=== PATIENT | male | born 1965 | race Caucasian/White ===

== ENCOUNTER 2024-03-25 23:12 | Inpatient (IN) | payer OTHER, SELFPAY ==
[2024-03-25 18:24] VITALS: BP 124/69
[2024-03-25 18:27] VITALS: BP 124/69
[2024-03-25 19:00] VITALS: BP 121/73
[2024-03-25 19:00] LABS: % Basophils 0.3 % (0-2); % Eosinophils 0.3 % (0-6); % Immature Granulocytes 0.3 % (0-0.5); % Lymphocytes 5.4 % (20.5-51.1); % Monocytes 3.5 % (1.7-9.3); % Neutrophils 90.2 % (42.2-75.2); Absolute Lymphocytes 0.6 10^3/uL (1.2-3.4); Absolute Monocytes 0.4 10^3/uL (0.1-0.6); Absolute Neutrophils 10.5 10^3/uL (1.4-6.5); Hematocrit 40.9 % (39.0-52.0); Hemoglobin 14.5 g/dL (13.0-18.0); Mean Corp Hgb Conc. 35.5 g/dL (33.0-37.0); Mean Corpuscular Hgb 29.8 pg (27.0-31.0); Mean Platelet Volume 10.9 fL (7.4-10.4); Nucleated Red Blood Cells % 0 % (-); Platelet Count 208 10^3/uL (130-400); Red Blood Cell Count 4.87 10^6/uL (4.70-6.10); Red Cell Dist. Width 13.2 % (11.5-14.5); White Blood Cell Count 11.7 10^3/uL (4.8-10.8)
[2024-03-25 19:15] LABS: ALT (SGPT) 13 U/L (0-50); AST (SGOT) 21 U/L (17-59); Albumin 4.4 g/dl (3.5-5.0); Alkaline Phosphatase 65 U/L (38-126); Blood Urea Nitrogen 23 mg/dl (9-20); Calcium 9.6 mg/dl (8.4-10.2); Carbon Dioxide 27 mmol/L (22-30); Chloride 105 mmol/L (98-107); Glucose 107 mg/dl (70-99); Potassium 3.9 mmol/L (3.5-5.1); Sodium 140 mmol/L (135-145); Total Bilirubin 0.5 mg/dl (0.2-1.3); Total Protein 6.8 g/dl (6.3-8.2); eGFR > 60.00
[2024-03-25 19:35] LABS: Urine Albumin Negative (Neg - Trace); Urine Bilirubin Negative (Negative); Urine Character Clear (Clear); Urine Color Yellow; Urine Glucose Negative (Negative); Urine Ketone Negative (Negative); Urine Leukocyte Negative (Negative); Urine Nitrite Negative (Negative); Urine Occult Blood Negative (Negative); Urine Urobilinogen Negative (Neg - 1+); Urine pH 6.5 (5.0-9.0)
[2024-03-25 19:48] LABS: Lactic Acid 2.4 mmol/L (0.7-2.0)
[2024-03-25] MEDS: NSS 1000 IV (19:58)
[2024-03-25 20:00] VITALS: BP 129/74
[2024-03-25] MEDS: THIAMINE INJECTION 100 MG IV (20:27)
[2024-03-25] MEDS: ZOSYN 100 IV (20:27)
--- NOTE | 2024-03-25 21:47 | ED.GENMED ---
History of Present Illness
General
Chief Complaint: Change in Mental Status
Source: patient
Exam Limitations: none
Time Seen by Provider: 03/25/24 19:10
Nursing documentation reviewed up to this point in time: agreed with
History of Present Illness
History of Present Illness:
Patient to ED from [facility] for change in mental status.According to [facility] he was not responsive to staff today. On arrival to ED he opens eyes to commands. Hypothermic, shaking chills. Septic workup initiated,
Past History
Past History
ED Past Medical History: Seizures, Hypothyroidism, Psychiatric (anxiety) and Other (Wenickes encephalopathy, failure to thrive)
ED Past Surgical History: None
Review of Systems
Review of Systems
Allergies reviewed?: Yes
All Other Systems: ROS reviewed and negative except as documented in HPI and ROS
Constitutional: Reports chills and other (hypothermia)
EENT: Reports no symptoms
Respiratory: Reports no symptoms
Cardiac: Reports no symptoms
ABD/GI: Reports anorexia
: Reports no symptoms
Musculoskeletal: Reports no symptoms
Skin: Reports no symptoms
Neurological: Reports weakness
Psychiatric: Reports anxiety
Phy Exam
General Physical Exam
General Presentation: no apparent distress
General age: appears stated age
General Skin: warm and dry
General Habitus: failure to thrive
General Mental: other (Nonverbal in ED. Opens eyes to name.)
Cardiovascular Exam
Cardiovascular Exam: regular rate/rhythm and no edema
Pulmonary Exam
Pulmonary Exam: lungs clear and no respiratory distress
Gastrointestinal Exam
Gastrointestinal Exam: normal bowel sounds, non tender, soft and no organomegaly
Musculoskeletal Exam
Musculoskeletal Exam: neuro vasc intact
Skin Exam
Skin Exam: normal color, warm/dry and no rash
Psychiatric Exam
Psychiatric Exam: other (opens eyes to name. Nonverbal im ED)
Course
Orders/Labs/Results
Orders:
Orders
03/25/24 18:52
Complete Blood Count/With Diff Urgent
Comprehensive Metabolic Panel Urgent
03/25/24 19:11
CT Head W/o Iv Contrast Urgent
Comment:
Reason For Exam: change in mental status
03/25/24 19:12
CR Chest - 2 Views Urgent
Comment:
Reason For Exam: cough
03/25/24 19:25
Lactic Acid Urgent
Urine Culture Reflexed from UA [Urinalysis Reflex To Culture] Urgent
Date Specimen was Collected: 03/25/24
Time Specimen was Collected: 19:00
Blood Culture Urgent
JOSSE Source: Blood/Venous
Specimen Description:
Date Specimen was Collected: 03/25/24
Time Specimen was Collected: 19:00
03/25/24 19:29
0.9% Sodium Chloride 1000 ml [Nss] 1,000 ml IV BOLUS
03/25/24 20:03
Piperacillin/Tazo 4.5 Gram [Zosyn] 4.5 gram in 100 ml IV NOW
Vancomycin 1 Gram/200 ml [Vancocin] 1 gram in 200 ml IV NOW
03/25/24 20:04
Blood Culture Urgent
JOSSE Source: Blood/Venous
Specimen Description:
03/25/24 20:17
Thiamine Injection 100 mg IV NOW STA
03/25/24 23:00
Flush (0.9% Sodium Chloride) [Flush (Nss)] See Dose Instructions IV PER PROTOCOL
03/25/24 23:30
Lactate Level [Lactic Acid] Urgent
Abnormal Lab Results
03/25/24 03/25/24
18:52 19:25
WBC 11.7 H 10^3/uL
(4.8-10.8)
MPV 10.9 H fL
(7.4-10.4)
Absolute Neuts (auto) 10.5 H 10^3/uL
(1.4-6.5)
Absolute Lymphs (auto) 0.6 L 10^3/uL
(1.2-3.4)
Neutrophils % 90.2 H %
(42.2-75.2)
Lymphocytes % 5.4 L %
(20.5-51.1)
BUN 23 H mg/dl
(9-20)
Glucose 107 H mg/dl
(70-99)
Lactic Acid 2.4 H mmol/L
(0.7-2.0)
03/25/24 18:52
03/25/24 18:52
Vital Signs
Initial and Last Documented VS:
Initial Vital Signs
Pulse BP
0 124/69
03/25/24 18:24 03/25/24 18:24
Last Documented Vital Signs
Temp Pulse Resp BP Pulse Ox
98.3 F 70 14 129/74 94
03/25/24 20:16 03/25/24 20:15 03/25/24 20:15 03/25/24 20:00 03/25/24 20:16
*Radiology
Radiology exam reviewed: radiology read reviewed
*Pulse Oximetry
Patient hypoxic: no
*Critical Care Note
Total Time (30-74mins, 75-104mins- exclusive of procedures): Not Applicable
ED Attending Note
-
Portions of this chart may have been created with voice recognition software.� Occasional wrong word or��sound alike� substitutions may have occurred due to the inherent limitations of voice recognition software.
Discharge Plan
Departure
Patient Disposition: Admit
Date of Disposition: 03/25/24
Time of Disposition: 22:00
Presentation/result/management discussed w/ accepting MD/DO: Hospitalist
Patient with high blood pressure during this ER visit?: No
Condition: Good
Covid-19: Not Applicable
Discharge Problem:
Sepsis, Pneumonia
Prescriptions:
No Action
levetiracetam 500 mg Tablet
500 mg PO Q12H
thiamine HCl (vitamin B1) 100 mg Tablet
100 mg PO DAILY
bisacodyl [Dulcolax (bisacodyl)] 10 mg Suppository
10 mg [place] DAILYPRN PRN (Reason: if no bm in 24hrs after MOM)
Fleet Enema 19-7 gram/118 mL Enema
118 ml [place] DAILYPRN PRN (Reason: if no bm in 24hrs after dulcolax)
folic acid 1 mg Tablet
1 mg PO DAILY
diazepam 10 mg Kit
10 mg [place] PRN PRN (Reason: seizure activity)
lorazepam [Ativan] 1 mg Tablet
1 mg PO Q6H
multivitamin with minerals Tablet
1 tab PO DAILY
risperidone 0.5 mg Tablet
0.5 mg PO BID
Referrals:
Hoda Moran, DO [Family Provider] -
Interventions
Interventions:
*Risk Screen - Suicide Last Done: 03/25/24 18:27
*General Assessment Last Done: 03/25/24 18:27
*Neglect/Abuse Screening Last Done: 03/25/24 18:27
*ED COVID-19 Vaccine History Last Done: 03/25/24 18:27
ED- Pulmonary Assessment Last Done: 03/25/24 20:20
ED- Neurological Assessment Last Done: 03/25/24 18:27
ED Swallowing Screen Last Done: 03/25/24 20:19
Discharge Date and Time
Print Language: SWEDISH
[2024-03-25] MEDS: VANCOCIN 200 IV (22:54)
--- NOTE | 2024-03-25 22:56 | W.PN.UPDATE ---
Update Note
Progress Note Update
This is an addendum to the H&P written by Nona Owens on 03/25/2024. Patient seen and examined independently with PA.
58-year-old male past medical history of seizures, hypothyroidism, anxiety, Wernicke's encephalopathy, here for unresponsiveness, sepsis and metabolic encephalopathy secondary to mild right basilar pneumonia. IV fluids, check COVID,
ceftriaxone/azithromycin. Change keppra to IV since cannot take oral meds.
[2024-03-25 22:58] VITALS: BP 119/68
[2024-03-25 23:00] VITALS: BP 110/62
--- NOTE | 2024-03-25 23:01 | HPS.HSE ---
Family Physician
-
Family Physician: Hoda Morna DO
Chief Complaint
-
Change in Mental Status
History of Present Illness
Patient is a 58 y/o with a PMH of alcohol use disorder, Wernicke's encephalopathy, and seizures who reports to the ED for mental status change. Patient has been a long-term resident at [facility] since 2021. Per staff had a change in mental
status today. Staff said he had fixed pupils and was unresponsive. Upon arrival to the ED he was able to open his eyes and was noted hypothermic. Additional work-up revealed evidence of pneumonia. Hosptialist group was asked to evaluate the patient
for admission to the hospital.
Medical History
Past Medical History
Past Medical History: Reports Other
Additional Past Medical History:
Alcohol Induced Persistent Amnestic Disorder
Wernicke's Encephalopathy
Seizure Disorder
Past Surgical History: Reports Other (Unknown)
Social History
Alcohol: Former
Living: Prison
Family History
Family History: Unable to Obtain
Allergies / Home Medications
Allergies reflects when Allergies were last updated in [employer]
Home Medications with original date entered in [employer]
Allergy/Medication List:
Allergies
Allergy/AdvReac Type Severity Reaction Status Date / Time
No Known Allergies Allergy Unverified 03/25/24 19:51
Home Medications
bisacodyl 10 mg rectal suppository (Dulcolax (bisacodyl)) 10 mg [place] DAILYPRN PRN if no bm in 24hrs after MOM 03/25/24
diazepam 10 mg rectal kit 10 mg MI PRN PRN seizure activity 03/25/24
folic acid 1 mg tablet 1 mg PO DAILY 03/25/24
levetiracetam 500 mg tablet 500 mg PO Q12H 03/25/24
lorazepam 1 mg tablet (Ativan) 1 mg PO Q6H 03/25/24
multivitamin with minerals 1 tab PO DAILY 03/25/24
risperidone 0.5 mg tablet 0.5 mg PO BID 03/25/24
sodium phosphates 19 gram-7 gram/118 mL enema (Fleet Enema) 118 ml [place] DAILYPRN PRN if no bm in 24hrs after dulcolax 03/25/24
thiamine HCl (vitamin B1) 100 mg tablet 100 mg PO DAILY 03/25/24
Review of Systems
-
Unable to obtain full review of systems at this time due to: Patient Non-verbal
Physical Exam
Vital Signs
Vital Signs
Temp Pulse Resp BP Pulse Ox
98.3 F 70 14 129/74 94
03/25/24 20:16 03/25/24 20:15 03/25/24 20:15 03/25/24 20:00 03/25/24 20:16
Physical Exam
General: Well Developed and Comfortable
HEENT: Anicteric and Moist mucous membranes
Respiratory: Decreased Breath Sounds (Poor inspiratory effort)
Cardiac: S1/S2 and Regular Rhythm
GI: Soft and Non Tender
Rectal: Deferred by Provider
Musculoskeletal: No Clubbing, No Cyanosis and No Edema
Skin: Warm and Dry
Neuro: Other (Lethargic and unable to participate in neurologic evaluation)
Laboratory Results
-
03/25/24 18:52
03/25/24 18:52
Laboratory Results
Lactic Acid 2.4 mmol/L (0.7-2.0) H 03/25/24 19:25
Total Bilirubin 0.5 mg/dl (0.2-1.3) 03/25/24 18:52
AST 21 U/L (17-59) 03/25/24 18:52
ALT 13 U/L (0-50) 03/25/24 18:52
Alkaline Phosphatase 65 U/L (38-126) 03/25/24 18:52
Data Reviewed
-
Diagnostic Radiology: Report Reviewed by me
Lab Data: Labs Reviewed by me
Impression/Plan
-
Sepsis/TME secondary to Pneumonia
-Continue ceftriaxone and azithromycin
-Continue NPO until mentation improves and seen by Speech
Seizure Disorder
-Continue Keppra IV until able to resume oral meds
-Hold lorazepam due to sedation
Wernicke's Encephalopathy
-Resume Folic Acid and Thiamine when able to take oral meds
Dysphagia
-Chopped diet per [place] paperwork
-Consult Speech
DVT proph: Lovenox
Code Status: DNR/DNI per [place] Paperwork
[2024-03-26] VITALS (8 sets, daily range): BP systolic 107–129; BP diastolic 55–73
[2024-03-26 00:15] LABS: Lactic Acid 1.5 mmol/L (0.7-2.0)
[2024-03-26 00:16] LABS: COVID-19 Antigen Negative (Negative)
[2024-03-26] MEDS: KEPPRA 500 MG IV ×3 (01:03→20:08)
[2024-03-26] MEDS: NSS 1000 IV ×2 (01:03→14:25)
--- NOTE | 2024-03-26 01:51 | PTCARENOTE ---
Pt. arrived from ED via stretcher. Patient pulled over from stretcher to bed in 338-2. Pt. non-verbal, arousable to tactile stimuli. Admission questions answered with information from [place] transfer sheet. Pt. AAOx0. Skin intact. Tele monitor placed
per orders. Bed alarm placed. Call rodriguez within reach. Plan of care ongoing.
[2024-03-26] MEDS: ZITHROMAX INFUSION 250 IV (05:25)
[2024-03-26] MEDS: ROCEPHIN 1000 MG IV (05:25)
[2024-03-26] MEDS: STERILE WATER FOR INJECTION 10 ML IV (05:25)
[2024-03-26] MEDS: RISPERDAL 0.5 MG PO ×2 (08:04→20:08)
--- NOTE | 2024-03-26 09:20 | W.PN.HOSP.TC ---
Today's Communication/Plan
-
Resume oral meds and diet
c/w IV Abx
Add PRN Diazepam
Fall precautions
Assessment / Plan
Assessment / Plan
Physical Exam
General: sitting in bed, awake
HEENT: Anicteric and Moist mucous membranes
Respiratory:No wheezes.
Cardiac: S1/S2
GI: Soft and Non Tender
Musculoskeletal: No Clubbing, No Cyanosis and No Edema
Skin: Warm and Dry
Neuro: H eis awake, seems at baseline, moving around
Psych: agitated
Sepsis with leukocytosis/ lactic acidosis, hypothermia
Now resolved
# TME secondary to Pneumonia
He seems back to baseline
Resume Risperdal as he is restless
# CAP
No hypoxia. Temp is normal this morning
-Continue ceftriaxone and azithromycin
-Continue NPO until mentation improves and seen by Speech
Seizure Disorder
- s/p Keppra IV , change back to oral
c/w PRN diazepam
Wernicke's Encephalopathy
Dysphagia
resume his home diet IDDS 6
DVT proph: Lovenox
Code Status: DNR/DNI per [place] Paperwork
Total time spent to see the patient, examine the patient on the floor, review data and lab results, discuss treatment plan with patient, nursing staff around 55 minutes
Anticipated Discharge: 24 - 48 hours
Subjective/Interval History
-
Date of Service: March 26, 2024
No fevers
Awake now
Objective Data
-
Labs:
Laboratory Results
03/26/24
09:07
WBC Pending
Hgb Pending
Hct Pending
Plt Count Pending
Sodium Pending
Potassium Pending
Chloride Pending
Carbon Dioxide Pending
BUN Pending
Creatinine Pending
Glucose Pending
Calcium Pending
Vital Signs:
Vital Signs
Temp Pulse Resp BP Pulse Ox
97.2 F 60 20 108/66 99
03/26/24 07:00 03/26/24 07:00 03/26/24 07:00 03/26/24 07:00 03/26/24 07:00
I&O
03/25/24 03/26/24 03/27/24
06:59 06:59 06:59
Intake Total 500 / 500
Balance 500 / 500
[2024-03-26 09:44] LABS: Hematocrit 41.5 % (39.0-52.0); Hemoglobin 14.5 g/dL (13.0-18.0); Mean Corp Hgb Conc. 34.9 g/dL (33.0-37.0); Mean Corpuscular Hgb 30.6 pg (27.0-31.0); Mean Corpuscular Volume 87.6 fL (80.0-94.0); Mean Platelet Volume 11.7 fL (7.4-10.4); Platelet Count 204 10^3/uL (130-400); Red Blood Cell Count 4.74 10^6/uL (4.70-6.10); Red Cell Dist. Width 13.2 % (11.5-14.5)
[2024-03-26 09:55] LABS: Blood Urea Nitrogen 14 mg/dl (9-20); Carbon Dioxide 24 mmol/L (22-30); Glucose 116 mg/dl (70-99); eGFR > 60.00
--- NOTE | 2024-03-26 10:31 | PTOTSP ---
Patient is not able to follow cues for bed mobility, transfers or OOB mobility in meaningful way to progress mobility. Does not demonstrate need for continued skilled therapy at this time. Will discharge from caseload.
Recommend return to [facility] at discharge.
[2024-03-26 11:19] LABS: Chloride 109 mmol/L (98-107); Potassium 4.5 mmol/L (3.5-5.1); Sodium 144 mmol/L (135-145)
--- NOTE | 2024-03-26 11:54 | PTOTSP ---
ST Acute Care Evaluation
Pt demonstrated oral, pharyngeal, and esophageal parameters that are safe for PO intake of all solids and liquids. No overt s/s of penetration or aspiration observed at bedside. Pt needs 1:1 assistance for feeding. Will put him back on baseline diet
consistencies.
Pt's acute change in mentation is being attributed to toxic metabolic encephalopathy in the setting of sepsis 2/2 PNA. Pt also with Wernicke's encephalopathy at baseline. As a result, further cognitive communication assessment is not warranted at
this time.
Recommendations:
- Continue with SOFT BITE SIZED SOLIDS (baseline diet), THIN LIQUIDS, meds as tolerated.
- General aspiration predations: 1:1 assistance for PO intake.
- BED RUBBER to sign off. No skilled needs identified at this time.
--- NOTE | 2024-03-26 14:04 | CM ---
Pt nonverbal LM with Marcia from [facility] for history.
[2024-03-26] MEDS: VALIUM 5 MG PO (14:56)
[2024-03-26] MEDS: ATIVAN 1 MG IV (17:18)
[2024-03-26] MEDS: NSS (PRESERVATIVE FREE) 0.5 ML IV (17:18)
[2024-03-26] MEDS: LOVENOX 40 MG SC (17:22)
[2024-03-27] MEDS: NSS 1000 IV (01:10)
--- NOTE | 2024-03-27 02:05 | PTCARENOTE ---
At the start of the shift, [employer] alerted. This RN immediately entered room where patient was upright in the bed on both knees trying to play with IV pump. While trying to redirect, patient became combative and aggressive and tried punching this
RN. Other staff entered the room to assist. KEVIN Wong notified. New order rec'd for b/l wrist restraints and 4 side rails. Plan of care ongoing.
[2024-03-27 03:40] VITALS: BP 127/74
[2024-03-27] MEDS: ZITHROMAX INFUSION 250 IV (05:36)
[2024-03-27] MEDS: STERILE WATER FOR INJECTION 10 ML IV (05:36)
[2024-03-27] MEDS: ROCEPHIN 1000 MG IV (05:36)
[2024-03-27] MEDS: NSS IV (06:51)
[2024-03-27 07:00] VITALS: BP 137/77
[2024-03-27] MEDS: RISPERDAL 0.5 MG PO ×2 (07:58→20:13)
[2024-03-27] MEDS: KEPPRA 500 MG IV (07:59)
[2024-03-27] MEDS: ATIVAN 1 MG PO ×4 (08:11→23:26)
--- NOTE | 2024-03-27 10:32 | W.PN.HOSP.TC ---
Today's Communication/Plan
-
dc in am
Assessment / Plan
Assessment / Plan
Physical Exam
General: sitting in bed, awake
HEENT: Anicteric and Moist mucous membranes
Respiratory:No wheezes.
Cardiac: S1/S2
GI: Soft and Non Tender
Musculoskeletal: No Clubbing, No Cyanosis and No Edema
Skin: Warm and Dry
Neuro: He is awake, non verbal, moving around
Psych: agitated
Sepsis with leukocytosis/ lactic acidosis, hypothermia
Now resolved
# TME secondary to Pneumonia
He seems back to baseline ( as per my conversation with Gris, his POA)
Resumed Risperdal and Ativan
# CAP
No hypoxia. Temp is normal
-Continue ceftriaxone and azithromycin
Seizure Disorder
- s/p Keppra IV , change back to oral
c/w PRN diazepam
Wernicke's Encephalopathy
Dysphagia
resume his home diet IDDS 6
DVT proph: Lovenox
Code Status: DNR/DNI per [place] Paperwork
Total time spent to see the patient, examine the patient on the floor, review data and lab results, discuss treatment plan with patient, pt's POA, nursing staff around 55 minutes
Anticipated Discharge: Within 24 hours
Subjective/Interval History
-
Date of Service: March 27, 2024
Agitated over night, requiring Ativan
He is eating well
Objective Data
-
Vital Signs:
Vital Signs
Temp Pulse Resp BP Pulse Ox
97.1 F 55 18 137/77 95
03/27/24 07:00 03/27/24 07:00 03/27/24 07:00 03/27/24 07:00 03/27/24 07:00
I&O
03/26/24 03/27/24 03/28/24
06:59 06:59 06:59
Intake Total 500 / 500 960 / 960
Balance 500 / 500 960 / 960
[2024-03-27 11:00] VITALS: BP 97/65
--- NOTE | 2024-03-27 11:05 | CM ---
Addendum entered by Leighann Soler RN 03/27/24 11:21:
[facility]
report [phone] 4 th floor
fax [phone]
Original Note:
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 Spoke with Rebekah nurse at [facility]. LM with KAYY Jones x2.Rebekah said he is assisted in feeding meds and bathing. iHe ambulates with no adaptive device. He like to crawl and
some times wants to sleep on floor on mattress . He will need ambulance on return.
[facility]
PCP DR Moran
PLAN Return to [facility]
[2024-03-27 11:28] LABS: Hematocrit 42.8 % (39.0-52.0); Hemoglobin 15.5 g/dL (13.0-18.0); Mean Corp Hgb Conc. 36.2 g/dL (33.0-37.0); Mean Corpuscular Hgb 30.6 pg (27.0-31.0); Mean Corpuscular Volume 84.4 fL (80.0-94.0); Mean Platelet Volume 11.1 fL (7.4-10.4); Platelet Count 206 10^3/uL (130-400); Red Blood Cell Count 5.07 10^6/uL (4.70-6.10); Red Cell Dist. Width 13.1 % (11.5-14.5); White Blood Cell Count 8.8 10^3/uL (4.8-10.8)
[2024-03-27 11:39] LABS: Blood Urea Nitrogen 11 mg/dl (9-20); Calcium 9.5 mg/dl (8.4-10.2); Carbon Dioxide 22 mmol/L (22-30); Chloride 110 mmol/L (98-107); Glucose 114 mg/dl (70-99); Potassium 4.1 mmol/L (3.5-5.1); Sodium 142 mmol/L (135-145); eGFR > 60.00
--- NOTE | 2024-03-27 12:38 | PN.CDI ---
Addendum entered and electronically signed by Gabriella Mazariegos MD 03/27/24 13:16:
Aspiration PNA
Original Note:
CDI
- -
CDI:
Physician Documentation Request
Admit Date: 03/25/24 23:12
Dear Doctor Yair,
Please review the following and provide your response in the progress notes.
Clinical Indicators:
- 03/27 PN 'TME secondary to Pneumonia'
- 'CAP'
- IV abx Ceftriaxone, Vancomycin, Zithromax, Zosyn given
- Covid negative
- 03/25 CXR 'Mild right basilar pneumonia'
Please clarify further specificity regarding the known, suspected or likely type of pneumonia you are treating (recognizing the specific organism may not be known)?
Aspiration Pneumonia - indicate substance such as food or vomitus, oils or other solids or liquids
Staph Pneumonia - indicate if MRSA or MSSA
Strep Pneumonia - indicate if strep B, strep pneumoniae or other type
Gram negative Pneumonia - indicate if Pseudomonas, Klebsiella or other
Viral Pneumonia - indicate parainfluenza, RSV, adenovirus, influenza (indicate type) etc.
Other type
Use of terms such as suspected, likely, concern for, or probable (associated with a specific diagnosis that is being evaluated, monitored, or treated as if it exists) are acceptable and can be coded in the inpatient setting, when documented at the
time of discharge.
Thank you,
Frankie Yousif RN
CDI Specialist
Please use your independent medical judgment in providing your response.
[2024-03-27 15:00] VITALS: BP 103/72
[2024-03-27] MEDS: LOVENOX 40 MG SC (17:21)
[2024-03-27 19:15] VITALS: BP 126/63
[2024-03-27] MEDS: KEPPRA 500 MG PO (20:13)
[2024-03-27 23:20] VITALS: BP 103/58
[2024-03-28 03:25] VITALS: BP 144/66
[2024-03-28] MEDS: STERILE WATER FOR INJECTION 10 ML IV (05:33)
[2024-03-28] MEDS: ATIVAN 1 MG PO ×2 (05:33→12:06)
[2024-03-28] MEDS: ROCEPHIN 1000 MG IV (05:33)
[2024-03-28] MEDS: ZITHROMAX 500 MG PO (07:57)
[2024-03-28] MEDS: RISPERDAL 0.5 MG PO (07:57)
[2024-03-28] MEDS: KEPPRA 500 MG PO (07:57)
[2024-03-28 08:08] VITALS: BP 115/59
--- NOTE | 2024-03-28 10:11 | PTCARENOTE ---
Pt confused/aphasic during breakfast and AM care. Cooperative with staff. Attempted trial out of restraints, ambulate at bedside. Immediately attempting to reach out and hit staff. Restraints reapplied and patient lying in bed smiling.
--- NOTE | 2024-03-28 10:17 | W.PN.HOSP.TC ---
Today's Communication/Plan
-
dc
Assessment / Plan
Assessment / Plan
Physical Exam
General: sitting in bed, awake
HEENT: Anicteric and Moist mucous membranes
Respiratory:No wheezes.
Cardiac: S1/S2
GI: Soft and Non Tender
Musculoskeletal: No Clubbing, No Cyanosis and No Edema
Skin: Warm and Dry
Neuro: He is awake, non verbal, moving around
Psych: agitated
Sepsis with leukocytosis/ lactic acidosis, hypothermia
Now resolved
# TME secondary to Pneumonia
He seems back to baseline ( as per my conversation with Gris, his POA)
Resumed Risperdal and Ativan
# CAP
No hypoxia. Temp is normal
-Continue ceftriaxone and azithromycin
Seizure Disorder
- s/p Keppra IV , change back to oral
c/w PRN diazepam
Wernicke's Encephalopathy
Dysphagia
resume his home diet IDDS 6
DVT proph: Lovenox
Code Status: DNR/DNI per [place] Paperwork
Total dc time spent to see the patient, examine the patient on the floor, review data and lab results, discuss discharge/ treatment plan with patient, pt's POA, skilled nursing case manager, nursing staff around 65 minutes
Anticipated Discharge: Today
Subjective/Interval History
-
Date of Service: March 28, 2024
No pain issues
Not agitated this morning
No fevers
Objective Data
-
Vital Signs:
Vital Signs
Temp Pulse Resp BP Pulse Ox
96.9 F L 54 18 115/59 100
03/28/24 08:08 03/28/24 08:08 03/28/24 08:08 03/28/24 08:08 03/28/24 08:08
I&O
03/27/24 03/28/24 03/29/24
06:59 06:59 06:59
Intake Total 1919 420 / 420
Balance 1919 420 / 420
[2024-03-28 11:29] VITALS: BP 103/71
--- NOTE | 2024-03-28 11:43 | W.DCSUMMARY ---
Discharge Summary
Discharge Data
Date of Admission: 03/25/24
Date of Discharge: 03/28/24
-
Pending Results: No
Hospital Course
58 years old male who was brought in for change in mental status. Patient was found to have leukocytosis. Patient had history of Wernicke's encephalopathy, seizure disorder and anxiety disorder. According to report, patient had poor mental and
cognitive function at baseline but seemed worse than usual. Patient was found to have mild right basilar pneumonia, consistent with aspiration pneumonia. Patient had underlying dysphagia and was maintained on modified diet. Patient was given
intravenous antibiotics. Blood culture did not show any growth. Patient started to improve, with good oral intake. Leukocytosis resolved. Patient remained hemodynamically stable. Patient started to become restless and agitated, he was placed
back on his medications including benzodiazepines and Keppra. He did not have seizures. Patient was discharged back to his place in a stable condition.
Discharge Plan
-
Patient Disposition: Retirement/SNF
Discharge Diagnosis/Procedures: Pneumonia
Diet: As tolerated and Chop all food
Referrals:
Hoda Moran DO [Family Provider] -
Prescriptions:
New
cefuroxime axetil 500 mg tablet
500 mg PO BID Qty: 3 0RF
Continued
levetiracetam 500 mg Tablet
500 mg PO Q12H
thiamine HCl (vitamin B1) 100 mg Tablet
100 mg PO DAILY
bisacodyl [Dulcolax (bisacodyl)] 10 mg Suppository
10 mg [place] DAILYPRN PRN (Reason: if no bm in 24hrs after MOM)
Fleet Enema 19-7 gram/118 mL Enema
118 ml [place] DAILYPRN PRN (Reason: if no bm in 24hrs after dulcolax)
folic acid 1 mg Tablet
1 mg PO DAILY
lorazepam [Ativan] 1 mg Tablet
1 mg PO Q6H
multivitamin with minerals Tablet
1 tab PO DAILY
risperidone 0.5 mg Tablet
0.5 mg PO BID
Discontinued
diazepam 10 mg Kit
10 mg [place] PRN PRN (Reason: seizure activity)
Discharge Orders:
Discharge Patient (As Directed); Ordered 03/28/24
Ordered By: Gabriella Mazariegos
Discharge Date and Time
Print Language: TURKISH
--- NOTE | 2024-03-28 11:48 | CM ---
patient is stable to dc back to [facility].sent referral to [facility].i spoke with katya and she confirmed patient can return.
phone number to call report is [phone]. fax number is [phone].
== END 2024-03-28 14:08 | DRG 871 ==
LOC: 3 WEST ACU 23:12
PROVIDERS: Emergency Medicine; Physician Assistant Medical; ADMITTING PHYSICIAN Hospitalist; ATTENDING PHYSICIAN Internal Medicine; EMERGENCY PHYSICIAN Emergency Medicine; FAMILY PHYSICIAN Hospitalist
DX: A41.9 Sepsis, unspecified organism (principal); G92.8 Other toxic encephalopathy; J18.9 Pneumonia, unspecified organism; J69.0 Pneumonitis due to inhalation of food and vomit; E51.2 Wernicke's encephalopathy; E87.20 Acidosis, unspecified; E03.9 Hypothyroidism, unspecified; Z66 Do not resuscitate; F41.9 Anxiety disorder, unspecified; G40.909 Epilepsy, unspecified, not intractable, without status epilepticus; R13.10 Dysphagia, unspecified; R62.7 Adult failure to thrive; Z79.899 Other long term (current) drug therapy; Z11.52 Encounter for screening for COVID-19
CPT/HCPCS: 70450; 71046; 80048; 80053; 81003; 83605; 85025; 85027; 87040; 87070; 87811; 92610; 96365; 96375; 97163; 97167; 99285